=== PATIENT | female | born 2000 | race Caucasian/White ===

== ENCOUNTER 2023-03-28 20:17 | Emergency (ER) | payer OTHER, MEDICAID, SELFPAY ==
[2023-03-28 20:20] VITALS: BP 117/87; PULSE 75; RESP 14; TEMP 36.8; O2SAT 100
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
[2023-03-28] MEDS: methocarbamoL 750 MG TABLET 1500 MG PO (22:25)
[2023-03-28 22:42] VITALS: BP 118/70; PULSE 78; RESP 16; O2SAT 99
== END 2023-03-28 22:43 | disposition home or self-care (01) ==
PROVIDERS: Emergency Provider Emergency Medicine
DX: S19.9XXA Unspecified injury of neck, initial encounter (principal); S09.90XA Unspecified injury of head, initial encounter; W51.XXXA Accidental striking against or bumped into by another person, initial encounter
CPT/HCPCS: 99283; A9270

== ENCOUNTER 2024-05-04 09:57 | Emergency (ER) | payer BC, SELFPAY ==
[2024-05-04 10:11] VITALS: BP 118/56; PULSE 67; RESP 20; TEMP 36.4; O2SAT 100
--- NOTE | 2024-05-04 10:11 | ED.ABDPAIN ---
HPI - Abdominal Pain General Chief Complaint: Abdominal Pain Stated Complaint: abd pain Time Seen by Provider: 05/04/24 10:06 History of Present Illness HPI narrative: [age] old female presenting to the emergency department for evaluation for right flank pain and right lower quadrant pain with associated urinary symptoms. Patient reports the symptoms started few days ago. Patient has only a history of a single UTI and states this feels similar. Patient denies any prior history of ovarian cyst denies any history of kidney stones. Patient did request medication for pain control for nausea control. Related Data Allergies Allergy/AdvReac Type Severity Reaction Status Date / Time No Known Allergies Allergy Verified 05/04/24 10:00 Review of Systems Review of Systems: All systems reviewed & are unremarkable except as noted in HPI and below Exam Narrative: APPEARANCE: Well appearing, no pain, no distress, well-nourished. HEAD: normocephalic, atraumatic. EYES: PERRLA/EOMI, conjunctivae clear. NOSE: Normal no drainage EARS:TMS clear with good light reflex. THROAT: Pharynx clear, no exudate. NECK: Supple. No adenopathy, no masses. RESPIRATORY: Airway patent, respirations nonlabored. Clear to auscultation bilaterally, no rales, rhonchi, wheezing. CARDIOVASCULAR: Regular rate and rhythm without murmurs rubs or gallops. ABDOMINAL: Right CVA and right lower quadrant tenderness to palpation MUSCULOSKELETAL: Moves all extremities. Strength/ROM intact, No edema, No calf tenderness. NEURO: Alert. Cranial nerves II through XII intact. Grossly intact SKIN: Warm, dry. Normal Color Course Course Emergency Course: Patient was treated for urinary tract infection and started on antibiotics in the emergency department. Vital Signs Vital signs: Vital Signs Temperature 97.6 F 05/04/24 10:11 Pulse Rate 67 05/04/24 10:11 Respiratory Rate 20 05/04/24 10:11 Blood Pressure 118/56 L 05/04/24 10:11 Pulse Oximetry 100 05/04/24 10:11 Oxygen Delivery Room Air 05/04/24 10:11 Temperature 98.7 F 05/04/24 11:44 Pulse Rate 67 05/04/24 10:11 Respiratory Rate 20 05/04/24 10:11 Blood Pressure 120/70 05/04/24 11:01 Pulse Oximetry 100 05/04/24 11:01 Oxygen Delivery Room Air 05/04/24 10:11 MDM - Abdominal Pain MDM Narrative Medical decision making narrative: [age] old female presented emergency department for evaluation for flank pain. Patient is afebrile but does have a leukocytosis 11.4 no acute abnormality of the CMP was normal kidney function patient does have glucose trace positive urine with greater than 100 reds and greater than 100 whites. Patient denies any prior history of kidney stones. Patient does have symptoms of urinary tract infection. Patient was started on antibiotics all emergency department discharged home with antibiotics. Patient reports she does feel improved with treatment. Differential Diagnosis Differential diagnosis: Likely abdominal pain, acute appendicitis, constipation, diverticulitis, gastroenteritis and small bowel obstruction Lab Data Attestation: I reviewed the patient's lab results. 05/04/24 10:22 05/04/24 10:22 Labs: Lab Results 05/04/24 05/04/24 Range/Units 10:14 10:22 WBC 11.4 H (4.5-10.0) K/mm3 RBC 4.24 (4.2-5.4) M/mm3 Hgb 12.9 (12.0-15.0) g/dL Hct 39.2 (37.0-47.0) % MCV 92.5 (80-100) fl MCH 30.4 (26-34) pg MCHC 32.9 (32-36) g/dl RDW 13.5 (11.5-14.5) % Plt Count 239 (150-375) k/mm3 MPV 9.5 (7.4-10.4) fl Immature Gran % (Auto) 0.3 (0-0.5) % Neut % (Auto) 73.0 (45.5-73.1) % Lymph % (Auto) 19.4 (18.3-44.2) % [place] % (Auto) 6.3 (2.6-8.5) % Eos % (Auto) 0.6 (0-4.4) % Baso % (Auto) 0.4 (0.2-1.2) % Lymph # (Auto) 2.21 (0.9-3.2) K/mm3 Caswell # (Auto) 0.7 H (0.1-0.6) K/mm3 Eos # (Auto) 0.1 (0-0.3) K/mm3 Baso # (Auto) 0.1 (0.0-0.1) K/mm3 Abs Radha
[2024-05-04 10:27] LABS: Basophils Absolute Auto 0.1 K/mm3 (0.0-0.1); Basophils Percent Auto 0.4 % (0.2-1.2); Eosinophils Absolute Auto 0.1 K/mm3 (0-0.3); Eosinophils Percent Auto 0.6 % (0-4.4); Hematocrit 39.2 % (37.0-47.0); Hemoglobin 12.9 g/dL (12.0-15.0); Immature Granulocyte Absolute 0.03 K/mm3 (0.00-0.031); Immature Granulocyte Percent A 0.3 % (0-0.5); Lymphocytes Absolute Auto 2.21 K/mm3 (0.9-3.2); Lymphocytes Percent Auto 19.4 % (18.3-44.2); Mean Corpuscular HGB Conc 32.9 g/dl (32-36); Mean Corpuscular Hemoglobin 30.4 pg (26-34); Mean Corpuscular Volume 92.5 fl (80-100); Mean Platelet Volume 9.5 fl (7.4-10.4); Monocytes Absolute Auto 0.7 K/mm3 (0.1-0.6); Monocytes Percent Auto 6.3 % (2.6-8.5); Neutrophils Absolute Auto 8.3 K/mm3 (1.3-6.7); Platelet Count Result 239 k/mm3 (150-375); Red Blood Count 4.24 M/mm3 (4.2-5.4); Red Cell Distribution Width 13.5 % (11.5-14.5); White Blood Count 11.4 K/mm3 (4.5-10.0)
[2024-05-04 10:33] LABS: Appearance Urine Cloudy (Clear); Bacteria Urine None Seen /hpf; Bilirubin Urine Negative (Negative); Blood Urine 2+ (Negative); Color Urine Yellow (Yellow); Glucose Urine UA Negative (Negative); Ketones Urine Negative (Negative); Leukocyte Esterase Ur 2+ LEU/UL (Negative); Nitrate Urine Negative (Negative); Non Pathogenic Casts 0-2; Protein Urine 1+ mg/dL (Negative); RBC Urine >100 /hpf (0-2); Specific Grav Ur 1.014 (1.001-1.035); Squamous Epithelial Cell Urine None Seen /hpf (Few); Urobilinogen Urine 0.2 mg/dL (<2.0); WBC Urine >100 /hpf (0-3); pH Urine 8.5 (5.0-9.0)
[2024-05-04 10:36] LABS: Add Urine Microscopic? YES
[2024-05-04 10:36] LABS: Alanine Aminotransferase 13 U/L (6-35); Albumin Level 4.3 g/dL (3.5-5.1); Alkaline Phosphatase 62 U/L (38-126); Anion Gap 8 mmol/L (4-12); Aspartate Amino Transferase 21 U/L (14-36); Bilirubin,Total 0.6 mg/dL (0.2-1.3); Blood Urea Nitrogen 8 mg/dL (7-17); Calcium 9.2 mg/dL (8.4-10.2); Carbon Dioxide 24 mmol/L (22-30); Chloride 106 mmol/L (98-107); Estimated CRCL calculation 119 ml/min; Estimated Glomerular Filt Rate > 60; Glucose 89 mg/dL (65-110); Lipase 38 U/L (23-300); Sodium 138 mmol/L (137-145)
[2024-05-04 10:37] LABS: Lactic Acid Reflex 0.8 mmol/L (0.7-2.0)
[2024-05-04] MEDS: HYDROmorphone HCL INJ (*CRX) 1 MG/ML SYR 0.5 MG IV PUSH (10:47)
[2024-05-04] MEDS: ONDANSETRON INJ 4 MG/2 ML VIAL IV PUSH (10:47)
[2024-05-04] MEDS: SODIUM CHLORIDE 0.9% IV 1,000 ML 999 ML IV CONT (10:48)
[2024-05-04 11:01] VITALS: BP 120/70; O2SAT 100
[2024-05-04 11:44] VITALS: TEMP 37.1
== END 2024-05-04 11:49 | disposition home or self-care (01) ==
PROVIDERS: Emergency Provider Emergency Medicine
DX: N39.0 Urinary tract infection, site not specified (principal)
CPT/HCPCS: 36415; 80053; 81001; 81025; 83605; 83690; 85025; 87077; 87086; 87088; 87186; 96365; 96375; 99284; J0696; J1170; J2405; J7030